=== PATIENT | female | born 1980 | race African-American/Black ===

== ENCOUNTER 2017-07-05 14:11 | Emergency (ER) | payer SELFPAY | END 2017-07-05 18:42 | disposition home or self-care (01) | LOC: D.ER 14:11 | DX: M54.16 Radiculopathy, lumbar region (principal); I10 Essential (primary) hypertension; K21.9 Gastro-esophageal reflux disease without esophagitis ==

== ENCOUNTER 2017-11-28 13:14 | Emergency (ER) | payer OTHER ==
[2017-11-28 13:37] LABS: BASOPHILS 0.1 % (0-2); EOSINOPHILS 2.6 % (0-7); HEMATOCRIT 38.8 % (36.0-48.0); HEMOGLOBIN 12.5 g/dL (12-16); IMMATURE GRANULOCYTES 0.1 % (0-5); LYMPHOCYTES 39.1 % (15-50); MCH 29.4 pg (26.0-34.0); MCHC 32.2 g/dL (31.0-37.0); MCV 91.3 fL (80.0-100.0); MEAN PLATELET VOLUME 10.8 fL (7.4-10.4); MONOCYTES 4.1 % (2-11); PLATELET COUNT 320 10x3/uL (130-400); RBC 4.25 10x6/uL (4.00-5.40); RDW 13.5 % (11.5-14.5)
[2017-11-28 13:57] LABS: ALBUMIN 3.3 g/dL (3.4-5.0); ALKALINE PHOSPHATASE 70 U/L (46-116); ALT (SGPT) 13 U/L (10-68); BILIRUBIN - TOTAL 0.36 mg/dL (0.2-1.3); CALC OSMOLALITY 277 mosm/kg (275-300); CALCIUM 8.6 mg/dL (8.5-10.1); CARBON DIOXIDE 24.5 mmol/L (21.0-32.0); CHLORIDE - SERUM 106 mmol/L (98-107); CREATININE - SERUM 0.9 mg/dL (0.6-1.3); GLUCOSE 75 mg/dL (74-106); POTASSIUM - SERUM 3.6 mmol/L (3.5-5.1); PROTEIN - SERUM 7.2 g/dL (6.4-8.2); SODIUM 140 mmol/L (136-145); UREA NITROGEN 13 mg/dL (7-18); eGFR NON AFRICAN AMERICAN 74 mL/min (90-120)
[2017-11-28 14:12] LABS: CHOL - HDL RATIO 2.9 ratio (2.3-4.1); CHOLESTEROL, TOTAL 133 mg/dL (0-200); CREATINE KINASE 117 UL (21-215); HDL CHOLESTEROL 46 mg/dL (32-96); LDL CHOLESTEROL 79 mg/dL (0-100); LDL-HDL RATIO 1.7 ratio (1.5-3.5); TRIGLYCERIDE 41 mg/dL (30-200); TROPONIN-I < 0.017 ng/mL (0.000-0.060)
[2017-11-28 17:24] LABS: CKMB 0.7 U/L (0.0-3.6); CREATINE KINASE 109 UL (21-215)
[2017-11-28 17:31] LABS: TROPONIN-I < 0.017 ng/mL (0.000-0.060)
== END 2017-11-28 17:58 | disposition home or self-care (01) ==
LOC: D.ER 13:14
PROVIDERS: Family Medicine
DX: R07.89 Other chest pain (principal); R00.1 Bradycardia, unspecified; K21.9 Gastro-esophageal reflux disease without esophagitis; I10 Essential (primary) hypertension

== ENCOUNTER → 2019-10-16 23:14 | Outpatient (CLI) | payer OTHER ==
[2019-10-16 23:48] LABS: APPEARANCE CLOUDY (CLEAR); BILIRUBIN NEGATIVE (NEGATIVE); COLOR BROWN (YELLOW); GLUCOSE NEGATIVE (NEGATIVE); KETONE NEGATIVE (NEGATIVE); NITRITE NEGATIVE (NEGATIVE); PROTEIN 2+ mg/dL (NEGATIVE); SPECIFIC GRAVITY 1.015 (1.005-1.020); UROBILINOGEN NORMAL (NORMAL)
[2019-10-16 23:50] LABS: BACTERIA MANY /hpf (NEGATIVE); EPITHELIAL CELLS 0-5 /hpf (0-5)
[2019-10-16 23:51] LABS: CHOLESTEROL CRYSTALS 0-5 /hpf (NONE SEEN)
== END | disposition home or self-care (01) ==
LOC: D.LABREF 23:14
DX: Z46.6 Encounter for fitting and adjustment of urinary device (principal); I69.354 Hemiplegia and hemiparesis following cerebral infarction affecting left non-dominant side